=== PATIENT | female | born 1985 | race Caucasian/White ===

== ENCOUNTER 2019-04-07 07:27 | Day surgery (SDC) | payer OTHER ==
[2019-04-07] MEDS ORDERED: Sodium Chloride 0.9% 20 ML ONE (08:16)
[2019-04-07] MEDS ORDERED: Acetaminophen 500 MG TAB PO PRN (08:23)
[2019-04-07] MEDS ORDERED: diphenhydrAMINE 50 MG/ML VIAL IVP PRN (08:23)
[2019-04-07] MEDS ORDERED: SODIUM CHLORIDE 0.9% IVPB SCH ×2 (08:30)
[2019-04-07] MEDS ORDERED: RITUXIMAB IVPB SCH (08:30)
[2019-04-07] MEDS ORDERED: METHYLPREDNISOLONE SOD SUCC IVPB SCH (08:30)
[2019-04-07 08:42] VITALS: BP 98/57; TEMP 97.9
== END 2019-04-07 16:20 | disposition home or self-care (01) ==
LOC: ONC/OP 07:27
PROVIDERS: ATTEND Internal Medicine Rheumatology
DX: M31.30 Wegener's granulomatosis without renal involvement (principal)
CPT/HCPCS: 96375; 96413; 96415; J1200; J2930; J7050; J9312

== ENCOUNTER 2019-04-14 07:51 | Day surgery (SDC) | payer OTHER ==
[~2019-04-14 07:51] MED LIST: Acetaminophen 500 MG TAB PO PRN; METHYLPREDNISOLONE SOD SUCC IVPB SCH; RITUXIMAB IVPB SCH; SODIUM CHLORIDE 0.9% IVPB SCH; diphenhydrAMINE 25 MG CAP PO PRN; diphenhydrAMINE 50 MG/ML VIAL IVP PRN
[2019-04-14 08:55] VITALS: BP 113/56; TEMP 97.6
== END 2019-04-14 14:01 | disposition home or self-care (01) ==
LOC: ONC/OP 07:51
PROVIDERS: ATTEND Internal Medicine Rheumatology
DX: M31.30 Wegener's granulomatosis without renal involvement (principal)
CPT/HCPCS: 96375; 96413; 96415; J1200; J2930; J7050; J9312; Q0163

== ENCOUNTER 2019-04-22 08:08 | Day surgery (SDC) | payer OTHER ==
[2019-04-22 08:52] VITALS: BP 110/63; TEMP 97.9
[2019-04-22] MEDS ORDERED: Sodium Chloride 0.9% 20 ML ONE (09:08)
== END 2019-04-22 13:21 | disposition home or self-care (01) ==
LOC: ONC/OP 08:08
PROVIDERS: ATTEND Internal Medicine Rheumatology
DX: M31.30 Wegener's granulomatosis without renal involvement (principal)
CPT/HCPCS: 96375; 96413; 96415; J1200; J7050; J9312

== ENCOUNTER 2019-04-28 08:02 | Day surgery (SDC) | payer OTHER ==
[2019-04-28] MEDS ORDERED: Sodium Chloride 0.9% 20 ML ONE (08:12)
[2019-04-28 08:48] VITALS: BP 116/67; TEMP 97.8
== END 2019-04-28 12:55 | disposition home or self-care (01) ==
LOC: ONC/OP 08:02
PROVIDERS: ATTEND Internal Medicine Rheumatology
DX: M31.30 Wegener's granulomatosis without renal involvement (principal)
CPT/HCPCS: 96375; 96413; 96415; J1200; J1642; J2930; J7050; J9312

== ENCOUNTER 2019-12-15 08:26 | Day surgery (SDC) | payer OTHER ==
[~2019-12-15 08:26] MED LIST changes: -Acetaminophen 500 MG TAB PO PRN; -METHYLPREDNISOLONE SOD SUCC IVPB SCH; +RITUXAN IVPB SCH; -RITUXIMAB IVPB SCH; -diphenhydrAMINE 25 MG CAP PO PRN; -diphenhydrAMINE 50 MG/ML VIAL IVP PRN
[2019-12-15] MEDS ORDERED: Sodium Chloride 0.9% 20 ML ONE (08:30)
[2019-12-15 08:47] VITALS: TEMP 98.5
[2019-12-15] MEDS ORDERED: Acetaminophen 500 MG TAB PO PRN (09:33)
[2019-12-15] MEDS ORDERED: diphenhydrAMINE 50 MG/ML VIAL IVP PRN (09:33)
[2019-12-15] MEDS ORDERED: diphenhydrAMINE 25 MG CAP PO SCH (09:45)
[2019-12-15] MEDS ORDERED: Acetaminophen 500 MG TAB PO SCH (09:45)
[2019-12-15] MEDS ORDERED: methylPREDNISolone Sod Succ/PF 125 MG/2 ML VIAL IVP SCH (09:45)
[2019-12-15 13:18] VITALS: BP 102/51
== END 2019-12-15 13:18 | disposition home or self-care (01) ==
LOC: ONC/OP 08:26
PROVIDERS: ATTEND Internal Medicine Rheumatology
DX: I77.6 Arteritis, unspecified (principal)
CPT/HCPCS: 96375; 96413; 96415; J2930; J7050; J9312; Q0163

== ENCOUNTER 2019-12-22 08:18 | Day surgery (SDC) | payer OTHER ==
[~2019-12-22 08:18] MED LIST changes: +Acetaminophen 500 MG TAB PO PRN; +Acetaminophen 500 MG TAB PO SCH; +METHYLPREDNISOLONE SOD SUCC IVPB SCH; +diphenhydrAMINE 25 MG CAP PO PRN; +diphenhydrAMINE 25 MG CAP PO SCH; +diphenhydrAMINE 50 MG/ML VIAL IVP PRN; +methylPREDNISolone Sod Succ/PF 125 MG/2 ML VIAL IVP SCH
[2019-12-22] MEDS ORDERED: Sodium Chloride 0.9% 20 ML ONE (08:26)
[2019-12-22 09:04] VITALS: BP 102/68; TEMP 98
== END 2019-12-22 12:02 | disposition home or self-care (01) ==
LOC: ONC/OP 08:18
PROVIDERS: ATTEND Internal Medicine Rheumatology
DX: I77.6 Arteritis, unspecified (principal)
CPT/HCPCS: 96375; 96413; 96415; J2930; J7030; J9312; Q0163

== ENCOUNTER 2020-06-22 16:29 | Inpatient (IN) | payer OTHER ==
[~2020-06-22 16:29] MED LIST changes: -Acetaminophen 500 MG TAB PO PRN; -Acetaminophen 500 MG TAB PO SCH; +Heparin 1,000 UNITS/ML VIAL ONE; -METHYLPREDNISOLONE SOD SUCC IVPB SCH; -RITUXAN IVPB SCH; -SODIUM CHLORIDE 0.9% IVPB SCH; -diphenhydrAMINE 25 MG CAP PO PRN; -diphenhydrAMINE 25 MG CAP PO SCH; -diphenhydrAMINE 50 MG/ML VIAL IVP PRN; -methylPREDNISolone Sod Succ/PF 125 MG/2 ML VIAL IVP SCH
[2020-06-22 16:53] VITALS: BMI 26.6
[2020-06-22] MEDS ORDERED: Ondansetron ODT 4 MG TAB PO PRN (19:30)
[2020-06-22] MEDS ORDERED: Meropenem 500 MG in Sodium Chloride 0.9% 100 ML IVPB SCH (19:36)
[2020-06-22] MEDS ORDERED: VANCOMYCIN 1.25 GM/250 ML BAG IVPB SCH (19:38)
[2020-06-22] MEDS: Acetaminophen 325 MG TAB PO PRN (19:43)
[2020-06-22] MEDS ORDERED: Artificial Tear Sol 15 ML BOT EA EYE PRN (20:23)
[2020-06-22] MEDS: Famotidine/PF 20 mg/2ml Vial SLOW IVP SCH (20:35)
[2020-06-22] MEDS: Folic Acid 1 MG TAB PO SCH (20:36)
[2020-06-22] MEDS: Montelukast Sodium 10 mg Tablet PO SCH (20:36)
--- NOTE | 2020-06-22 20:36 | PDOC.HHP ---
Hospitalist HPI History of Present Illness: ADMISSION DATE: 06/22/2020 TIME OF ASSESSMENT: 1800 PRIMARY CARE PHYSICIAN: None CHIEF COMPLAINT: Fever and productive cough HPI: This is a 35-year-old woman with a history of Hang's disease who has been transferred from [facility] due to sepsis pneumonia with a lung abscess. 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 She states she developed chills and continued to feel generally unwell the following 2 days. She was tested for Covid and it came back negative. She developed a cough and discomfort to the right shoulder blade region prompting her to seek medical attention. A chest x- ray done 06/15/2020 showed evidence for right upper lobe pneumonia. The patient received a dose of Rocephin and was sent home on Augmentin. After 2 days she presented to the emergency department due to persistently high temperatures at home spite the antibiotics. A repeat chest x-ray done on 06/17/2020 demonstrated right upper lobe pneumonia that appeared mildly or moderately worse compared to the initial chest x-ray. She was admitted to [facility] and continued on Rocephin as well as azithromycin. Dr. Gale of [place] was consulted and her antibiotics were switched to cefepime, vancomycin and Levaquin. She had a CT of the chest done which demonstrated findings suggestive for right upper lobe pneumonia and a marylin mitten pulmonary abscess predominantly affecting the right upper lobe. There is a large sense of consolidation within the right upper lobe consistent with a large area of infectious pneumonitis. In the medial aspect of the process was the intraparenchymal pulmonary abscess. Reticulonodular densities within the superior segment of the right lower lobe were seen as well. Follow-up imaging was advised after treatment completed to confirm resolution and exclude any underlying mass lesion. Due to persistent leukocytosis and persistent fevers it was decided to transfer the patient here for pulmonary evaluation. Carious testing ordered by Dr. Gale which is pending as well as AFB. She had blood cultures done at the time of admission which were negative. Acc ording to the patient she has been slightly tachycardic throughout her hospital stay and her blood pressure has been in the low 100s which she states is typical for her. Her sats have maintained above 95% on room air without the need for oxygen supplementation. She continues to have a cough that is productive for purulent sputum but denies any hemoptysis or chest pain. Denies having any shortness of breath and states that DuoNeb's have been helping significantly. She prefers to avoid cough suppressants in order to continue to cough up sputum. She received 1 dose of Lovenox prior to transfer and states it was very painful. She wishes to try mechanical SCDs for now and hold off on antico agulation. Her appetite is low and she reports decreased food intake but has maintained adequate hydration. Denies any abdominal pain but has been experiencing some loose stools associated with antibiotics. Denies any profuse watery diarrhea. All other review systems are negative. Allergies/Adverse Reactions: Allergy/AdvReac Type Severity Reaction Status Date / Time hydrocodone [From [place]] AdvReac Intermediate Verified 06/17/20 18:08 NSAIDS (Non-Steroidal AdvReac Verified 06/17/20 18:08 Anti-Inflamma Home Medications: Medication Instructions Recorded Confirmed Type Fluticasone Propionate [Flonase 1 spray EA NARE DAILY 06/17/20 06/22/20 History Allergy Relief] Folic Acid 1 mg PO HS 06/17/20 06/22/20 History Methotrexate Sodium 15 mg PO Q7D 06/17/20 06/22/20 History Montelukast Sodium [Singulair] 10 mg PO HS 06/17/20 06/22/20 History Restasis [Restasis Ophth Drops] 2 drop EA EYE BID 06/17/20 06/22/20 History Rituxan 1,000 mg IVPB Q168D 06/17/20 06/22/20 History Ipratropium/Albuterol Sulfate 3 ml NEB [id number] neb 06/22/20 06/22/20 Rx [DuoNeb] Past History: PAST MEDICAL HISTORY: 1. Hang's disease, on Rituxan and methotrexate. Last dose of Rituxan was 6 months ago. Follows with a [employer] in [place]. 2. Asthma PAST SURGICAL HISTORY: 1. SOCIAL HISTORY: Denies any tobacco use, alcohol consumption or drug use. FAMILY HISTORY: Noncontributory Hospitalist Exam Vitals: Vital Signs (12 hours) Temp Pulse Resp BP Pulse Ox 06/22/20 17:00 98 06/22/20 16:52 100.2 F H 106 H 18 103/69 98 Weight Weight 165 lb General Appearance: NAD, awake alert Eye: PERRL, anicteric sclera ENT: normocephalic atraumatic, moist mucosa Neck: supple, no lymphadenopathy Heart: RRR, no murmur, normal peripheral pulses Respiratory: CTAB, no wheezes, no rales, no ronchi, normal chest expansion Gastrointestinal: soft, non-tender, non-distended, normal bowel sounds Extremities: no cyanosis, no clubbing, no edema Skin: normal turgor, no lesions, no rashes Neurological: cranial nerve grossly intact, normal sensation to touch, no weakness Musculoskeletal: normal tone, normal strength, no muscle wasting Psychiatric: normal affect, normal behavior, A&O x 3 Hospitalist Results Result Diagrams: 06/22/20 20:08 CT scan - chest Status: report reviewed by nm Hospitalist H&P A/P (1) Abscess of lung with pneumonia Code(s): J85.1 - ABSCESS OF LUNG WITH PNEUMONIA Status: Acute (2) Diarrhea Code(s): R19.7 - DIARRHEA, UNSPECIFIED Status: Acute (3) Hypokalemia Code(s): E87.6 - HYPOKALEMIA Status: Acute (4) Hang's disease, pulmonary Code(s): 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 Gale Consults placed for Dr. Gale and Dr. Trejo DVT prophylaxis with Mechanical SCDs, per patient request Lovenox on hold GI Prophylaxis with mechanical SCDs CODE STATUS FULL Case discussed with attending.
[2020-06-22 20:37] LABS: Hemoglobin 10.5 g/dL (12.0-16.0); Mean Corpuscular HGB CONC 33.7 g/dL (32.0-36.0); Mean Corpuscular Volume 89.1 fL (78.0-98.0); Mean Platelet Volume 6.9 fL (7.4-10.4); Platelet Count 799 thou/uL (130-400); RBC Distribution Width 12.8 % (11.5-14.5); Red Blood Cell (RBC) Count 3.49 mill/uL (4.20-5.40); White Blood Cell (WBC) Count 23.2 thou/uL (4.8-10.8)
[2020-06-22] MEDS: Sodium Chloride 0.9% 1,000 ML IV SCH (20:38)
[2020-06-22 20:49] LABS: Lactic Acid 2.3 mmol/L (0.5-2.2)
[2020-06-22 20:53] LABS: Anion Gap 17 mmol/L (10-20); BUN (Urea Nitrogen) 8 mg/dL (7.0-18.7); Calc. Creatinine Clearance 131 mL/min (70-130); Calcium 8.4 mg/dL (7.8-10.44); Carbon Dioxide 20 mmol/L (22-29); Chloride 102 mmol/L (98-107); Glucose 120 mg/dL (70-105); Magnesium 2.1 mg/dL (1.6-2.6); Potassium 3.5 mmol/L (3.5-5.1); Sodium 135 mmol/L (136-145)
[2020-06-22 20:59] LABS: Band 29 % (5-11); Eosinophils 1 % (0-10); Lymphocytes 9 % (21-51); MDiff Complete? YES; Monocytes 5 % (0-10); Neutrophil 56 % (42-75); Platelet Morphology Comment Appears Increased
[2020-06-22] MEDS ORDERED: Potassium Chloride 20 MEQ TAB PO SCH (21:00)
[2020-06-22] MEDS ORDERED: Vancomycin 1 GM in Premix Bag 1 BAG IVPB SCH (21:00)
[2020-06-22] MEDS ORDERED: Cefepime 2 GM in Sodium Chloride 0.9% 100 ML IVPB SCH (21:00)
[2020-06-22] MEDS: VANCOMYCIN 1.25 GM/250 ML BAG 1.25 GM in Premix Bag 1 BAG IVPB SCH (22:19)
[2020-06-23] MEDS: Meropenem 500 MG in Sodium Chloride 0.9% 100 ML IVPB SCH ×4 (00:29→20:41)
[2020-06-23 02:50] LABS: SARS-CoV-2 PCR by NAA Not Detected (NotDetected)
[2020-06-23 06:11] LABS: Anion Gap 15 mmol/L (10-20); BUN (Urea Nitrogen) 7 mg/dL (7.0-18.7); Calc. Creatinine Clearance 153 mL/min (70-130); Calcium 8.3 mg/dL (7.8-10.44); Carbon Dioxide 23 mmol/L (22-29); Chloride 103 mmol/L (98-107); Glucose 101 mg/dL (70-105); Potassium 4.1 mmol/L (3.5-5.1); Sodium 137 mmol/L (136-145)
[2020-06-23] MEDS: VANCOMYCIN 1.25 GM/250 ML BAG 1.25 GM in Premix Bag 1 BAG IVPB SCH ×3 (06:20→22:19)
[2020-06-23] MEDS: Sodium Chloride 0.9% 1,000 ML IV SCH ×2 (06:21→14:20)
[2020-06-23 06:40] LABS: Band 4 % (5-11); Eosinophils 2 % (0-10); Lymphocytes 9 % (21-51); MDiff Complete? YES; Mean Corpuscular HGB CONC 32.7 g/dL (32.0-36.0); Mean Corpuscular Hemoglobin 29.2 pg (27.0-31.0); Mean Corpuscular Volume 89.3 fL (78.0-98.0); Monocytes 10 % (0-10); Neutrophil 75 % (42-75); Platelet Count 817 thou/uL (130-400); Platelet Morphology Comment Appears Increased; Red Blood Cell (RBC) Count 3.79 mill/uL (4.20-5.40); White Blood Cell (WBC) Count 25.3 thou/uL (4.8-10.8)
[2020-06-23] MEDS: Saccharomyces boulardii 250 MG CAP PO SCH (08:38)
[2020-06-23] MEDS: Famotidine/PF 20 mg/2ml Vial SLOW IVP SCH ×2 (08:39→20:41)
[2020-06-23] MEDS ORDERED: FLU VACC QS2020-21(6MOS UP)/PF 60 MCG/0.5 ML SYRINGE IM ONE (09:00)
[2020-06-23] MEDS: Fluticasone Propionate Nasal Spray 16 gm Bottle NASAL SCH (11:25)
[2020-06-23] MEDS: Acetaminophen 325 MG TAB PO PRN (11:28)
--- NOTE | 2020-06-23 13:34 | CON ---
DATE OF CONSULTATION: 06/23/2020 HISTORY OF PRESENT ILLNESS: Ms. Gorman is a 35-year-old female. She was diagnosed several years back when she was having Hang's. She did have a positive ANCA. She apparently had pulmonary and renal involvement based on her history. She was transferred from [facility] over here because of this. PAST MEDICAL HISTORY: Otherwise remarkable only for asthma. She takes Rituxan and methotrexate for her Hang's. 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 SOCIAL HISTORY: She is nonsmoker, nondrinker, and nondrug user. FAMILY HISTORY: Negative for lung disease in early age. REVIEW OF SYSTEMS: Otherwise negative. Her presenting complaint was pleurisy, apparently which is initially treated outpatient with Augmentin and then she is subsequently admitted. PHYSICAL EXAMINATION: GENERAL: She is afebrile and temperature maximum here 100.2, heart rate is 105, respiratory rate is 16, oximetry is 96 on room air. HEENT: Pupils are equal. Sclerae are anicteric. NECK: Supple. LUNGS: She has diffuse wheezes on chest exam, they are mild. HEART: Regular rhythm. S1 and S2 are normal. ABDOMEN: Soft and nontender. EXTREMITIES: Without clubbing, cyanosis, or edema. LABORATORY DATA: Her ANCA and myeloperoxidase antibodies are negative. IMPRESSION: 1. Underlying Hang's, which appears to be quiescent. 2. Necrotizing pneumonia involving posterior segment in right upper lobe. This is most likely mixed kandi. Once she has 24 hours of being afebrile, she could be switched to enteral antimicrobial therapy. She probably would benefit from low- dose steroids given her ongoing bronchospasm that is mild. We will follow. This is a 70 min consult with greater than 50% of the time spent on the unit with coordination of care. Job ID: [id number] [facility]
--- NOTE | 2020-06-23 13:35 | PRG ---
DATE OF SERVICE: 06/23/2020 SUBJECTIVE: Ms. Gorman has been transferred to the hospital from [place] to have Pulmonary evaluate the patient. She is actually doing a little better and is coughing less, less sputum production, a little bit of loose stool. No abdominal pain. No chest pain. OBJECTIVE: VITAL SIGNS: T-max was 100.2 yesterday, now she has been max 99 since she was transferred; blood pressure 96/60; heart rate 113; breathing 20 times a minute; 96% room air saturation. LUNGS: With a little bit of change in the breath sounds in the right upper lobe, but other than that, no wheezing or crackles. HEART: S1 and S2. Regular rate. No S3 or S4. ABDOMEN: Soft, not distended or tender. BACK: No back tenderness. NEUROLOGIC: Nonfocal. LABORATORY DATA: White cell count is up to 25,000, hemoglobin 11, platelets 817, 75% neutrophils, bands are down to 4%, which is a good sign. Creatinine 0.6. Repeat SARS-CoV-2 not detected. Karius test shows no organism below or above the threshold of statistical significance. I am going to contact the laboratory and see if there is any organism below the threshold that might be significant in this scenario. The Hang serologies were negative. TB QuantiFERON test was negative. The Fungitell assay was less than 31 and immunoglobulin quantitation was normal. ASSESSMENT AND DISCUSSION: History of Hang's, on Rituxan and methotrexate with acute community-acquired pneumonia with abscess, likely anaerobic component plus-minus gram-negative brad or methicillin-resistant Staphylococcus aureus. Methicillin-resistant Staphylococcus aureus and gram-negative brad component are less likely since one would expect a positive Karius test. Fungal mycobacterial less likely. Continue current regimen and see if she will start to improve this. If she continues to improve, then we will place a PICC line and discharge on IV antimicrobial therapy for protracted period of time. P.S.: I contacted [employer] consulting service and requested that they look at the raw data and the list of pathogens that were detected below their threshold of significance, and Mycoplasma pneumonia was identified. Since the sample was submitted quite a few days after initiation of antimicrobial tx, it is conceivable that Mycoplasma pneumoniae might the the etiology here since it has been described in association with lung abscess. The atypical presentation would be potentially explained by the immunosuppression. Job ID: [id number] [facility]
--- NOTE | 2020-06-23 15:08 | PDOC.HOSPP ---
- Subjective Encounter Date: 06/23/20 Subjective: Patient's record reviewed. Patient reports he is generally feeling okay. Eager to ambulate a bit if she can. - Objective Vital Signs & Weight: Vital Signs (12 hours) Temp Pulse Resp BP BP Pulse Ox 06/23/20 13:40 101 H 16 95 06/23/20 11:31 98.3 F 113 H 20 96/60 96 06/23/20 08:43 96 06/23/20 07:51 99.4 F 124 H 22 H 118/88 96 06/23/20 06:07 105 H 16 96 06/23/20 05:20 98.6 F 117 H 18 111/77 97 Weight Weight 165 lb Result Diagrams: 06/23/20 05:26 06/23/20 05:26 Hospitalist ROS - Medication Medications: Active Medications Generic Name Dose Route Start Last Admin Trade Name Freq PRN Reason Stop Dose Admin Acetaminophen 650 mg 06/22/20 19:30 06/23/20 11:28 Acetaminophen 325 Mg Tab PO 650 mg Q4H PRN Administration Headache/Fever/Mild Pain (1-3) Albuterol/Ipratropium 3 ml 06/23/20 01:00 06/23/20 13:40 Ipratropium/Albuterol Sulfate 3 Ml Neb NEB 3 ml [id number] MORGAN Administration Famotidine 20 mg 06/22/20 21:00 06/23/20 08:39 Famotidine/Pf 20 Mg/2ml Vial SLOW IVP 20 mg Q12HR MORGAN Administration Fluticasone Propionate 0 gm 06/23/20 09:00 06/23/20 11:25 Fluticasone Propionate Nasal [place] 16 Gm Bottle NASAL 1 spr DAILY MORGAN Administration Folic Acid 1 mg 06/22/20 21:00 06/22/20 20:36 Folic Acid 1 Mg Tab PO 1 mg HS MORGAN Administration Meropenem 500 mg/ Sodium 100 mls @ 200 mls/hr 06/22/20 23:59 06/23/20 11:25 Chloride IVPB 100 mls Q6HR MORGAN Administration Levofloxacin 750 mg/ Device 150 mls @ 100 mls/hr 06/22/20 20:30 06/22/20 20:35 IVPB 150 mls Q24HR MORGAN Administration Sodium Chloride 1,000 mls @ 100 mls/hr 06/22/20 20:15 06/23/20 14:20 Normal Saline 0.9% IV 1,000 mls .Q10H MORGAN Administration Vancomycin HCl 1.25 gm/ Device 250 mls @ 166.667 mls/hr 06/22/20 22:00 06/23/20 14:15 IVPB 250 mls Q8HR MORGAN Administration Montelukast Sodium 10 mg 06/22/20 21:00 06/22/20 20:36 Montelukast Sodium 10 Mg Tablet PO 10 mg HS MORGAN Administration Saccharomyces Boulardii 250 mg 06/23/20 09:00 06/23/20 08:38 Saccharomyces Boulardii 250 Mg Cap PO 250 mg DAILY MORGAN Administration Sodium Chloride 10 ml 06/22/20 21:00 06/23/20 08:38 Flush - Normal Saline 10 Ml Syringe IVF Not Given Q12HR MORGAN Hospitalist Exam Vitals: Vital Signs (12 hours) Temp Pulse Resp BP BP Pulse Ox 06/23/20 13:40 101 H 16 95 06/23/20 11:31 98.3 F 113 H 20 96/60 96 06/23/20 08:43 96 06/23/20 07:51 99.4 F 124 H 22 H 118/88 96 06/23/20 06:07 105 H 16 96 06/23/20 05:20 98.6 F 117 H 18 111/77 97 Weight Weight 165 lb General Appearance: NAD, awake alert Heart: RRR, no murmur, no gallops, no rubs, normal peripheral pulses Respiratory - other findings: Right upper lobe rales. Slight wheeze. Gastrointestinal: soft, non-tender, non-distended, normal bowel sounds, no palpa ble masses, no hepatomegaly, no splenomegaly, no bruit Extremities: no cyanosis, no clubbing, no edema Skin: normal turgor Neurological: cranial nerve grossly intact, normal sensation to touch, no weakness, no focal deficits, no new deficit Musculoskeletal: normal tone, normal strength, no muscle wasting Psychiatric: normal affect, normal behavior, A&O x 3 Hosp A/P (1) Necrotizing pneumonia Code(s): J85.0 - GANGRENE AND NECROSIS OF LUNG Status: Acute (2) Diarrhea Code(s): R19.7 - DIARRHEA, UNSPECIFIED Status: Acute (3) Hypokalemia Code(s): E87.6 - HYPOKALEMIA Status: Acute (4) Hang's disease, pulmonary Code(s): M31.30 - HANG'S GRANULOMATOSIS WITHOUT RENAL INVOLVEMENT Status: Chronic (5) Sepsis Code(s): A41.9 - SEPSIS, UNSPECIFIED ORGANISM Status: Resolved - Plan Necrotizing pneumonia with resolved sepsis: Based on patient's imaging she has significant right upper lobe infiltrate with area of abscess or necrotic tissue. Patient transferred for pulmonary input. Appreciate Dr. Trejo's consult. Case was discussed with Dr. Trejo. ID consult also appreciated. Patient remains on broad-spectrum antibiotics. Karius test pending to help isolate the potential source of infection. Possibly polymicrobial. History of Hang's granulomatosis: Appears quiescent. Pulmonary recommended low-dose steroids. New Hypokalemia: Improved. Continue to monitor Diarrhea: Appears to be stabilized. Continue to monitor.
[2020-06-23] MEDS: Montelukast Sodium 10 mg Tablet PO SCH (20:41)
[2020-06-23] MEDS: Folic Acid 1 MG TAB PO SCH (20:41)
[2020-06-23 21:55] LABS: Vancomycin, Trough 13.9 ug/mL
[2020-06-24] MEDS: Sodium Chloride 0.9% 1,000 ML IV SCH ×2 (02:21→12:30)
[2020-06-24] MEDS: VANCOMYCIN 1.25 GM/250 ML BAG 1.25 GM in Premix Bag 1 BAG IVPB SCH (05:48)
[2020-06-24] MEDS: Meropenem 500 MG in Sodium Chloride 0.9% 100 ML IVPB SCH ×5 (05:48→23:41)
[2020-06-24 08:10] LABS: #Basophils 0.1 thou/uL (0.0-0.2); #Eosinphils 0.2 thou/uL (0.0-0.7); #Lymphocytes 2.3 thou/uL (1.20-3.40); #Monocytes 1.8 thou/uL (0.11-0.59); #Neutrophils 20.8 thou/uL (1.40-6.50); %Basophils 0.3 % (0.0-1.0); %Eosinophils 0.9 % (0.0-10.0); %Lymphocytes 9.2 % (21.0-51.0); %Neutrophils 82.5 % (42.0-75.0); Hemoglobin 10.4 g/dL (12.0-16.0); Mean Corpuscular HGB CONC 34.5 g/dL (32.0-36.0); Mean Corpuscular Hemoglobin 31.3 pg (27.0-31.0); Mean Corpuscular Volume 90.7 fL (78.0-98.0); Mean Platelet Volume 6.9 fL (7.4-10.4); Platelet Count 782 thou/uL (130-400); Red Blood Cell (RBC) Count 3.32 mill/uL (4.20-5.40); White Blood Cell (WBC) Count 25.2 thou/uL (4.8-10.8)
[2020-06-24] MEDS: methylPREDNISolone Sod Succ 40 MG VIAL IVP SCH (08:21)
[2020-06-24] MEDS: Saccharomyces boulardii 250 MG CAP PO SCH (08:21)
[2020-06-24] MEDS: Famotidine/PF 20 mg/2ml Vial SLOW IVP SCH ×2 (08:21→20:50)
[2020-06-24] MEDS: Fluticasone Propionate Nasal Spray 16 gm Bottle NASAL SCH (08:22)
[2020-06-24 08:33] LABS: ALT (SGPT) 294 U/L (8-55); AST (SGOT) 152 U/L (5-34); Albumin 3.1 g/dL (3.5-5.0); Alkaline Phosphatase 331 U/L (40-110); Anion Gap 15 mmol/L (10-20); BUN (Urea Nitrogen) 7 mg/dL (7.0-18.7); Bilirubin, Total 0.7 mg/dL (0.2-1.2); Calc. Creatinine Clearance 135 mL/min (70-130); Carbon Dioxide 23 mmol/L (22-29); Chloride 101 mmol/L (98-107); Globulin 2.9 g/dL (2.4-3.5); Glucose 106 mg/dL (70-105); Potassium 4.2 mmol/L (3.5-5.1); Sodium 135 mmol/L (136-145)
--- NOTE | 2020-06-24 13:19 | PDOC.HOSPP ---
- Subjective Encounter Date: 06/24/20 (f/u necrotizing pneumonia) Encounter Time: 13:18 Subjective: Pt today reports she is feeling about the same. She denies any significant shortness of breath. She denies n/v, having loose stools but not abd pain or diarrhea. She denies any new sx. Decreased PO intake secondary to food not tasting right. - Objective Vital Signs & Weight: Vital Signs (12 hours) Temp Pulse Resp BP Pulse Ox 06/24/20 08:00 98 06/24/20 07:06 102 H 16 98 06/24/20 07:00 98.9 F 115 H 20 97/65 95 Weight Weight 165 lb I&O: 06/23/20 06/24/20 06/25/20 06:59 06:59 06:59 Intake Total 1900 Balance 1900 Result Diagrams: 06/24/20 07:33 06/24/20 07:34 Hospitalist ROS - Medication Medications: Active Medications Generic Name Dose Route Start Last Admin Trade Name Freq PRN Reason Stop Dose Admin Acetaminophen 650 mg 06/22/20 19:30 06/23/20 11:28 Acetaminophen 325 Mg Tab PO 650 mg Q4H PRN Administration Headache/Fever/Mild Pain (1-3) Albuterol/Ipratropium 3 ml 06/23/20 01:00 06/24/20 07:06 Ipratropium/Albuterol Sulfate 3 Ml Neb NEB 3 ml [id number] MORGAN Administration Famotidine 20 mg 06/22/20 21:00 06/24/20 08:21 Famotidine/Pf 20 Mg/2ml Vial SLOW IVP 20 mg Q12HR MORGAN Administration Fluticasone Propionate 0 gm 06/23/20 09:00 06/24/20 08:22 Fluticasone Propionate Nasal [place] 16 Gm Bottle NASAL 1 spr DAILY MORGAN Administration Folic Acid 1 mg 06/22/20 21:00 06/23/20 20:41 Folic Acid 1 Mg Tab PO 1 mg HS MORGAN Administration Meropenem 500 mg/ Sodium 100 mls @ 200 mls/hr 06/22/20 23:59 06/24/20 12:30 Chloride IVPB 100 mls Q6HR MORGAN Administration Levofloxacin 750 mg/ Device 150 mls @ 100 mls/hr 06/22/20 20:30 06/23/20 21:30 IVPB 150 mls Q24HR MORGAN Administration Vancomycin HCl 1.25 gm/ Device 250 mls @ 166.667 mls/hr 06/22/20 22:00 06/24/20 05:48 IVPB 250 mls Q8HR MORGAN Administration Methylprednisolone Sodium Succinate 40 mg 06/24/20 09:00 06/24/20 08:21 Methylprednisolone Sod Succ 40 Mg Vial IVP 40 mg DAILY MORGAN Administration Montelukast Sodium 10 mg 06/22/20 21:00 06/23/20 20:41 Montelukast Sodium 10 Mg Tablet PO 10 mg HS MORGAN Administration Saccharomyces Boulardii 250 mg 06/23/20 09:00 06/24/20 08:21 Saccharomyces Boulardii 250 Mg Cap PO 250 mg DAILY MORGAN Administration Sodium Chloride 10 ml 06/22/20 21:00 06/24/20 08:23 Flush - Normal Saline 10 Ml Syringe IVF Not Given Q12HR MORGAN Hospitalist Exam Vitals: Vital Signs (12 hours) Temp Pulse Resp BP Pulse Ox 06/24/20 08:00 98 06/24/20 07:06 102 H 16 98 06/24/20 07:00 98.9 F 115 H 20 97/65 95 Weight Weight 165 lb General Appearance: NAD Heart: RRR, no murmur Respiratory: no wheezes, no rales, no ronchi Respiratory - other findings: slightly decreased breath sounds right upper chest Gastrointestinal: soft, non-tender, non-distended, normal bowel sounds Extremities: no cyanosis, no clubbing, no edema Psychiatric: normal affect Hosp A/P (1) Necrotizing pneumonia Code(s): J85.0 - GANGRENE AND NECROSIS OF LUNG Status: Acute (2) Elevated liver function tests Code(s): R79.89 - OTHER SPECIFIED ABNORMAL FINDINGS OF BLOOD CHEMISTRY Status: Acute (3) Hang's disease, 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 Patient transferred for pulmonary input. Appreciate Dr. Trejo's consult. ID consult also appreciated plan for PICC line and IV antibiotics Karius test pending to help isolate the potential source of infection. History of Hang's granulomatosis Appears quiescent. Pulmonary recommended low-dose steroids - started 2/6 Hypokalemia Resolved Elevated LFT's Last check was May and normal. Uncertain if related to infection, meds, and/or another process. Will trend and order RUQ ultrasound Diarrhea Resolved dvt prophy - ambulatory gi prophy - on IV famotidine as pt was having GI sx code status full reviewed plan of care with patient/her Mom, no questions or further needs at end of eval.
--- NOTE | 2020-06-24 14:30 | ULT ---
RIGHT UPPER QUADRANT ULTRASOUND CLINICAL HISTORY: Elevated LFTs.. COMPARISON: None FINDINGS: Liver:Normal echotexture without focal mass. Intrahepatic bile ducts: No intrahepatic or extrahepatic biliary dilation.; Common bile duct: 1.9 mm. Gallbladder: There is layered gallbladder sludge within the gallbladder. There are small stones withi n the gallbladder fundus. No gallbladder wall thickening is evident. Adrian's sign:None Main portal vein:Patent with hepatopedal flow. Pancreas:Visualized pancreas appears normal. Right kidney: Right kidney measures 11.8 x 5.0 x 4.5 cm. No focal renal lesion or hydronephrosis. Additional findings: None. IMPRESSION: Cholelithiasis with gallbladder sludge. No definite sonographic evidence of acute cholecystitis.
[2020-06-24] MEDS: Montelukast Sodium 10 mg Tablet PO SCH (20:50)
[2020-06-24] MEDS: Folic Acid 1 MG TAB PO SCH (20:50)
[2020-06-25] MEDS: VANCOMYCIN 1.25 GM/250 ML BAG 1.25 GM in Premix Bag 1 BAG IVPB SCH ×3 (00:21→13:51)
[2020-06-25] MEDS: Meropenem 500 MG in Sodium Chloride 0.9% 100 ML IVPB SCH ×3 (05:39→17:08)
[2020-06-25 07:01] LABS: Hemoglobin 9.9 g/dL (12.0-16.0); Mean Corpuscular HGB CONC 32.1 g/dL (32.0-36.0); Mean Corpuscular Hemoglobin 28.8 pg (27.0-31.0); Mean Corpuscular Volume 89.9 fL (78.0-98.0); Mean Platelet Volume 7.1 fL (7.4-10.4); Platelet Count 937 thou/uL (130-400); RBC Distribution Width 12.9 % (11.5-14.5); Red Blood Cell (RBC) Count 3.44 mill/uL (4.20-5.40)
[2020-06-25 07:13] LABS: Anion Gap 16 mmol/L (10-20); BUN (Urea Nitrogen) 12 mg/dL (7.0-18.7); Calc. Creatinine Clearance 161 mL/min (70-130); Calcium 8.7 mg/dL (7.8-10.44); Carbon Dioxide 24 mmol/L (22-29); Chloride 103 mmol/L (98-107); Glucose 114 mg/dL (70-105); Potassium 3.9 mmol/L (3.5-5.1); Sodium 139 mmol/L (136-145)
[2020-06-25 07:16] LABS: ALT (SGPT) 297 U/L (8-55); AST (SGOT) 181 U/L (5-34); Alkaline Phosphatase 302 U/L (40-110); Bilirubin, Direct 0.2 mg/dL (0.1-0.3); Bilirubin, Total 0.4 mg/dL (0.2-1.2); Protein, Total 5.8 g/dL (6.0-8.3)
[2020-06-25 08:31] LABS: Band 6 % (5-11); Hypersemented Neutrophil SLIGHT; Large Platelets SLIGHT; Lymphocytes 4 % (21-51); MDiff Complete? YES; Monocytes 6 % (0-10); Neutrophil 84 % (42-75); Platelet Morphology Comment Appears Increased
[2020-06-25] MEDS: methylPREDNISolone Sod Succ 40 MG VIAL IVP SCH (08:38)
[2020-06-25] MEDS: Saccharomyces boulardii 250 MG CAP PO SCH (08:38)
[2020-06-25] MEDS: Famotidine/PF 20 mg/2ml Vial SLOW IVP SCH (08:38)
[2020-06-25] MEDS: Fluticasone Propionate Nasal Spray 16 gm Bottle NASAL SCH (08:39)
--- NOTE | 2020-06-25 12:52 | PDOC.HOSPP ---
- Subjective Encounter Date: 06/25/20 (f/u necrotizing pneumonia) Encounter Time: 12:49 Subjective: Pt reports feeling better - notices her heart rate is lower, she has been walking in the hallway. She has not noticed any further fever. She denies any diarrhea/n/v/abd pain. She reports food is tasting better. - Objective Vital Signs & Weight: Vital Signs (12 hours) Temp Pulse Resp BP BP Pulse Ox 06/25/20 09:41 74 18 101/69 97 06/25/20 08:38 97 06/25/20 08:00 97.4 F L 68 18 98/61 93 L 06/25/20 06:54 102 H 14 98 06/25/20 05:32 97.6 F 73 20 99/71 97 06/25/20 01:18 97.4 F L 78 20 104/70 98 Weight Admit Weight 165 lb Weight 165 lb I&O: 06/24/20 06/25/20 06/26/20 06:59 06:59 06:59 Intake Total 1900 1330 Balance 1900 1330 Result Diagrams: 06/25/20 06:13 06/25/20 06:13 Hospitalist ROS - Medication Medications: Active Medications Generic Name Dose Route Start Last Admin Trade Name Freq PRN Reason Stop Dose Admin Acetaminophen 650 mg 06/22/20 19:30 06/23/20 11:28 Acetaminophen 325 Mg Tab PO 650 mg Q4H PRN Administration Headache/Fever/Mild Pain (1-3) Albuterol/Ipratropium 3 ml 06/23/20 01:00 06/25/20 12:38 Ipratropium/Albuterol Sulfate 3 Ml Neb NEB 3 ml [id number] MORGAN Administration Fluticasone Propionate 0 gm 06/23/20 09:00 06/25/20 08:39 Fluticasone Propionate Nasal [place] 16 Gm Bottle NASAL 1 spr DAILY MORGAN Administration Folic Acid 1 mg 06/22/20 21:00 06/24/20 20:50 Folic Acid 1 Mg Tab PO 1 mg HS MORGAN Administration Meropenem 500 mg/ Sodium 100 mls @ 200 mls/hr 06/22/20 23:59 06/25/20 11:44 Chloride IVPB 100 mls Q6HR MORGAN Administration Levofloxacin 750 mg/ Device 150 mls @ 100 mls/hr 06/22/20 20:30 02/06/21 20:56 IVPB 150 mls Q24HR MORGAN Administration Vancomycin HCl 1.25 gm/ Device 250 mls @ 166.667 mls/hr 06/24/20 22:00 06/25/20 06:32 IVPB 250 mls Q8HR MORGAN Administration Methylprednisolone Sodium Succinate 40 mg 06/24/20 09:00 06/25/20 08:38 Methylprednisolone Sod Succ 40 Mg Vial IVP 40 mg DAILY MORGAN Administration Montelukast Sodium 10 mg 06/22/20 21:00 06/24/20 20:50 Montelukast Sodium 10 Mg Tablet PO 10 mg HS MORGAN Administration Saccharomyces Boulardii 250 mg 06/23/20 09:00 06/25/20 08:38 Saccharomyces Boulardii 250 Mg Cap PO 250 mg DAILY MORGAN Administration Sodium Chloride 10 ml 06/22/20 21:00 06/25/20 08:38 Flush - Normal Saline 10 Ml Syringe IVF 10 ml Q12HR MORGAN Administration Hospitalist Exam Vitals: Vital Signs (12 hours) Temp Pulse Resp BP BP Pulse Ox 06/25/20 09:41 74 18 101/69 97 06/25/20 08:38 97 06/25/20 08:00 97.4 F L 68 18 98/61 93 L 06/25/20 06:54 102 H 14 98 06/25/20 05:32 97.6 F 73 20 99/71 97 06/25/20 01:18 97.4 F L 78 20 104/70 98 Weight Admit Weight 165 lb Weight 165 lb General Appearance: NAD Heart: RRR, no murmur Respiratory: no wheezes, no rales, no ronchi Respiratory - other findings: slightly decreased breath sounds right upper chest Gastrointestinal: soft, non-tender, non-distended, normal bowel sounds Extremities: no cyanosis, no clubbing, no edema Psychiatric: normal affect Hosp A/P (1) Necrotizing pneumonia Code(s): J85.0 - GANGRENE AND NECROSIS OF LUNG Status: Acute (2) Elevated liver function tests Code(s): R79.89 - OTHER SPECIFIED ABNORMAL FINDINGS OF BLOOD CHEMISTRY Status: Acute (3) Hang's disease, 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 Patient transferred from [facility] for pulmonary input - Appreciate Dr. Trejo's consult. ID consult also appreciated plan for PICC line and IV antibiotics - request for PICC line placed, anticipate it will be tomorrow (Friday) WBC slightly improved today even with steroids started yesterday. History of Hang's granulomatosis Appears quiescent. Pulmonary recommended low-dose steroids - started 2/6 Hypokalemia Resolved Elevated LFT's - stable from yesterday Last check was May and normal. RUQ ultrasound shows gallstones/sludge - asx Continue monitoring - likely multi-factorial with illness and antibiotics Diarrhea Resolved Thrombocytosis - likely reactive, monitor dvt prophy - ambulatory gi prophy - on famotidine - change to PO while on steroids code status full reviewed plan of care with patient/family, no questions or further needs at end of eval.
--- NOTE | 2020-06-25 13:39 | PRG ---
DATE OF SERVICE: 06/25/2020 SUBJECTIVE: Ingris Gorman is afebrile. She says she is feeling better. She has been walking in the halls. OBJECTIVE: LUNGS: Clear. HEART: Regular rhythm. ABDOMEN: Soft. EXTREMITIES: Without asymmetry. LABORATORY DATA: White count is 23, hemoglobin 9.9, platelets are up to 937. She has 84% segs, 6% bands. Electrolytes are unremarkable. IMPRESSION: 1. Pneumonia with a reactive thrombocytosis. 2. 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 She is scheduled to go home with IV/PICC line antimicrobial therapy. I have recommended that she follow up with me in 6 to 8 weeks for a followup chest x-ray to document clearing. Job ID: [id number]
--- NOTE | 2020-06-25 16:24 | PRG ---
DATE OF SERVICE: 06/25/2020 SUBJECTIVE: Feeling better actually. Still coughing somewhat, but not much sputum production anymore. No chest pain. No abdominal pain or diarrhea. OBJECTIVE: VITAL SIGNS: Temperature has been normal, but she is on steroids. Respiratory rate 18, saturating 96% on room air, pulse 82. Finally it came down. LUNGS: Quite clear to auscultation and percussion. CARDIAC: S1, S2. Regular rate. ABDOMEN: Soft, not distended. NEUROLOGIC: Nonfocal. EXTREMITIES: No edema. LABORATORY DATA: AST, ALT went up. They are still up at 181 and 297. Alkaline phosphatase went up to 331 and now is 302. Albumin is 3.0. Creatinine normal. The abdominal ultrasound showed cholelithiasis, but no cholecystitis. She has been started on steroids. I had stopped vancomycin. For some reason, it has been restarted. She does not require vancomycin any longer until the results of the carious test. ASSESSMENT AND DISCUSSION: Hang granulomatosis and necrotizing infection, right upper lobe; mycoplasma sequences identified in carious test, although below the threshold of statistical significance. Nonetheless, this was after quite a few days of antimicrobial therapy, so I think thus far the more tenable pathogen that is causing this in a somewhat atypical presentation due to her immunosuppression, probably mycoplasma can cause liver abnormalities or she is having a drug related reaction. We will go and stop vancomycin. Continue Merrem and levofloxacin and depending on progress, we may have to switch her to azithromycin and ertapenem for outpatient treatment. Discharge planning hopefully for tomorrow. Followup radiological studies at intervals and plan to treat her for two to three weeks approximately depending on clinical and laboratory progress. Job ID: [id number]
[2020-06-25] MEDS: Folic Acid 1 MG TAB PO SCH (20:02)
[2020-06-25] MEDS: Montelukast Sodium 10 mg Tablet PO SCH (20:02)
[2020-06-25] MEDS: Famotidine 20 MG TAB PO SCH (20:03)
[2020-06-26] MEDS: Meropenem 500 MG in Sodium Chloride 0.9% 100 ML IVPB SCH ×4 (00:01→17:26)
[2020-06-26 08:38] LABS: Mean Corpuscular HGB CONC 31.7 g/dL (32.0-36.0); Mean Corpuscular Hemoglobin 28.7 pg (27.0-31.0); Mean Corpuscular Volume 90.6 fL (78.0-98.0); Mean Platelet Volume 7.3 fL (7.4-10.4); Platelet Count 1169 thou/uL (130-400); RBC Distribution Width 13.2 % (11.5-14.5); Red Blood Cell (RBC) Count 3.82 mill/uL (4.20-5.40); White Blood Cell (WBC) Count 18.8 thou/uL (4.8-10.8)
[2020-06-26 08:49] LABS: Anion Gap 16 mmol/L (10-20); BUN (Urea Nitrogen) 16 mg/dL (7.0-18.7); Calc. Creatinine Clearance 153 mL/min (70-130); Calcium 8.6 mg/dL (7.8-10.44); Carbon Dioxide 23 mmol/L (22-29); Chloride 105 mmol/L (98-107); Glucose 89 mg/dL (70-105); Potassium 3.9 mmol/L (3.5-5.1); Sodium 140 mmol/L (136-145)
[2020-06-26 08:54] LABS: ALT (SGPT) 806 U/L (8-55); AST (SGOT) 453 U/L (5-34); Alkaline Phosphatase 296 U/L (40-110); Bilirubin, Direct 0.2 mg/dL (0.1-0.3); Bilirubin, Total 0.3 mg/dL (0.2-1.2); Protein, Total 5.7 g/dL (6.0-8.3)
[2020-06-26] MEDS: Saccharomyces boulardii 250 MG CAP PO SCH (09:03)
[2020-06-26] MEDS: Famotidine 20 MG TAB PO SCH ×2 (09:03→20:48)
[2020-06-26] MEDS: methylPREDNISolone Sod Succ 40 MG VIAL IVP SCH (09:03)
[2020-06-26] MEDS: Fluticasone Propionate Nasal Spray 16 gm Bottle NASAL SCH (09:04)
[2020-06-26 09:29] LABS: Band 10 % (5-11); Lymphocytes 20 % (21-51); MDiff Complete? YES; Monocytes 5 % (0-10); Neutrophil 64 % (42-75); Platelet Morphology Comment Appears Increased; Polychromasia SLIGHT = 2-3 cells (100X) (0-2/hpf); Reactive Lymphocytes 1 % (0-10)
--- NOTE | 2020-06-26 09:30 | PDOC.HOSPP ---
- Subjective Encounter Date: 06/26/20 Encounter Time: 09:27 - Objective Vital Signs & Weight: Vital Signs (12 hours) Temp Pulse Resp BP Pulse Ox 06/26/20 07:34 97 06/26/20 07:29 97.7 F 87 16 109/76 97 06/26/20 06:33 66 12 96 06/26/20 04:45 97.6 F 75 18 98/60 96 06/26/20 00:07 97.5 F L 83 16 94/55 L 97 Weight Admit Weight 165 lb Weight 165 lb I&O: 06/25/20 06/26/20 06/27/20 06:59 06:59 06:59 Intake Total 1330 1250 Balance 1330 1250 Result Diagrams: 06/26/20 07:51 06/26/20 07:51 Hospitalist ROS - Medication Medications: Active Medications Generic Name Dose Route Start Last Admin Trade Name Freq PRN Reason Stop Dose Admin Acetaminophen 650 mg 06/22/20 19:30 06/23/20 11:28 Acetaminophen 325 Mg Tab PO 650 mg Q4H PRN Administration Headache/Fever/Mild Pain (1-3) Albuterol/Ipratropium 3 ml 06/23/20 01:00 06/26/20 06:33 Ipratropium/Albuterol Sulfate 3 Ml Neb NEB 3 ml [id number] MORGAN Administration Famotidine 20 mg 06/25/20 21:00 06/26/20 09:03 Famotidine 20 Mg Tab PO 20 mg BID MORGAN Administration Fluticasone Propionate 0 gm 06/23/20 09:00 06/26/20 09:04 Fluticasone Propionate Nasal [place] 16 Gm Bottle NASAL 1 spr DAILY MORGAN Administration Folic Acid 1 mg 06/22/20 21:00 06/25/20 20:02 Folic Acid 1 Mg Tab PO 1 mg HS MORGAN Administration Meropenem 500 mg/ Sodium 100 mls @ 200 mls/hr 06/22/20 23:59 06/26/20 06:11 Chloride IVPB 100 mls Q6HR MORGAN Administration Levofloxacin 750 mg/ Device 150 mls @ 100 mls/hr 06/22/20 20:30 06/25/20 19:59 IVPB 150 mls Q24HR MORGAN Administration Methylprednisolone Sodium Succinate 40 mg 06/24/20 09:00 02/08/21 09:03 Methylprednisolone Sod Succ 40 Mg Vial IVP 40 mg DAILY MORGAN Administration Montelukast Sodium 10 mg 06/22/20 21:00 06/25/20 20:02 Montelukast Sodium 10 Mg Tablet PO 10 mg HS MORGAN Administration Saccharomyces Boulardii 250 mg 06/23/20 09:00 06/26/20 09:03 Saccharomyces Boulardii 250 Mg Cap PO 250 mg DAILY MORGAN Administration Sodium Chloride 10 ml 06/22/20 21:00 06/26/20 09:03 Flush - Normal Saline 10 Ml Syringe IVF 10 ml Q12HR MORGAN Administration Hospitalist Exam Vitals: Vital Signs (12 hours) Temp Pulse Resp BP Pulse Ox 06/26/20 07:34 97 06/26/20 07:29 97.7 F 87 16 109/76 97 06/26/20 06:33 66 12 96 06/26/20 04:45 97.6 F 75 18 98/60 96 06/26/20 00:07 97.5 F L 83 16 94/55 L 97 Weight Admit Weight 165 lb Weight 165 lb
--- NOTE | 2020-06-26 10:18 | SPC ---
Ultrasound and Fluoroscopic guided left upper extremity PICC placement HISTORY: Pneumonia. Patient needs long-term IV antibiotics. FINDINGS: Informed consent obtained prior to the procedure. An appropriate access site was determined with ultrasound guidance. The area was then meticulously pr epped and draped in usual sterile fashion. Skin overlying the left basilic vein anesthetized with 1% buffered lidocaine. Utilizing direct sonogr aphic guidance, vascular access is obtained via the left basilic vein, and an 0.018in guidewire was advanced to the cavoatrial junction. Intravascular length is calculated at 38.5 cm, and the PICC is c ut accordingly. Needle is removed and replaced with a peel-away sheath. The PICC was advanced over the wire. Wire and peel-away sheath were removed. The tip of the catheter overlies the cavoatrial junction. The catheter was accessed and aspirated/flushed easily. Exposure data: 0.7 minutes of fluoroscopic time 2522 mGy centimeter squared FINDINGS: Technically successful placement of a 38.5 centimeter single lumen 5 [place] left upper extremity PICC line. IMPRESSION: Successful ultrasound guided placement of a left upper extremity PICC.
--- NOTE | 2020-06-26 16:14 | PDOC.HOSPP ---
- Subjective Encounter Date: 06/26/20 Encounter Time: 16:11 Subjective: no fever, chills ,hemoptysis - Objective Vital Signs & Weight: Vital Signs (12 hours) Temp Pulse Resp BP Pulse Ox 06/26/20 11:35 98.0 F 80 20 103/66 98 06/26/20 07:34 97 06/26/20 07:29 97.7 F 87 16 109/76 97 06/26/20 06:33 66 12 96 06/26/20 04:45 97.6 F 75 18 98/60 96 Weight Admit Weight 165 lb Weight 165 lb I&O: 06/25/20 06/26/20 06/27/20 06:59 06:59 06:59 Intake Total 1330 1250 Balance 1330 1250 Result Diagrams: 06/26/20 07:51 06/26/20 07:51 Hospitalist ROS - Medication Medications: Active Medications Generic Name Dose Route Start Last Admin Trade Name Freq PRN Reason Stop Dose Admin Acetaminophen 650 mg 06/22/20 19:30 06/23/20 11:28 Acetaminophen 325 Mg Tab PO 650 mg Q4H PRN Administration Headache/Fever/Mild Pain (1-3) Albuterol/Ipratropium 3 ml 06/23/20 01:00 06/26/20 14:35 Ipratropium/Albuterol Sulfate 3 Ml Neb NEB Not Given [id number] MORGAN Famotidine 20 mg 06/25/20 21:00 06/26/20 09:03 Famotidine 20 Mg Tab PO 20 mg BID MORGAN Administration Fluticasone Propionate 0 gm 06/23/20 09:00 06/26/20 09:04 Fluticasone Propionate Nasal [place] 16 Gm Bottle NASAL 1 spr DAILY MORGAN Administration Folic Acid 1 mg 06/22/20 21:00 06/25/20 20:02 Folic Acid 1 Mg Tab PO 1 mg HS MORGAN Administration Meropenem 500 mg/ Sodium 100 mls @ 200 mls/hr 06/22/20 23:59 06/26/20 11:55 Chloride IVPB 100 mls Q6HR MORGAN Administration Levofloxacin 750 mg/ Device 150 mls @ 100 mls/hr 06/22/20 20:30 06/25/20 19:59 IVPB 150 mls Q24HR MORGAN Administration Methylprednisolone Sodium Succinate 40 mg 06/24/20 09:00 06/26/20 09:03 Methylprednisolone Sod Succ 40 Mg Vial IVP 40 mg DAILY MORGAN Administration Montelukast Sodium 10 mg 06/22/20 21:00 06/25/20 20:02 Montelukast Sodium 10 Mg Tablet PO 10 mg HS MORGAN Administration Saccharomyces Boulardii 250 mg 06/23/20 09:00 06/26/20 09:03 Saccharomyces Boulardii 250 Mg Cap PO 250 mg DAILY MORGAN Administration Sodium Chloride 10 ml 06/22/20 21:00 06/26/20 09:03 Flush - Normal Saline 10 Ml Syringe IVF 10 ml Q12HR MORGAN Administration Hospitalist Exam Vitals: Vital Signs (12 hours) Temp Pulse Resp BP Pulse Ox 06/26/20 11:35 98.0 F 80 20 103/66 98 06/26/20 07:34 97 06/26/20 07:29 97.7 F 87 16 109/76 97 06/26/20 06:33 66 12 96 06/26/20 04:45 97.6 F 75 18 98/60 96 Weight Admit Weight 165 lb Weight 165 lb General Appearance: awake alert Neck: no JVD Heart: RRR, no murmur Respiratory: CTAB Gastrointestinal: soft, normal bowel sounds Extremities: no edema Hosp A/P (1) Diarrhea Code(s): R19.7 - DIARRHEA, UNSPECIFIED Status: Acute (2) Elevated liver function tests Code(s): R79.89 - OTHER SPECIFIED ABNORMAL FINDINGS OF BLOOD CHEMISTRY Status: Acute (3) Necrotizing pneumonia Code(s): J85.0 - GANGRENE AND NECROSIS OF LUNG Status: Acute (4) Hang's disease, 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
[2020-06-26] MEDS: Folic Acid 1 MG TAB PO SCH (20:47)
[2020-06-26] MEDS: Montelukast Sodium 10 mg Tablet PO SCH (20:47)
[2020-06-27] MEDS: Meropenem 500 MG in Sodium Chloride 0.9% 100 ML IVPB SCH ×3 (00:03→11:29)
[2020-06-27 07:33] VITALS: BP 126/86; TEMP 97.9
[2020-06-27] MEDS: Famotidine 20 MG TAB PO SCH (08:39)
[2020-06-27] MEDS: Saccharomyces boulardii 250 MG CAP PO SCH (08:39)
[2020-06-27] MEDS: methylPREDNISolone Sod Succ 40 MG VIAL IVP SCH (08:39)
[2020-06-27] MEDS: Fluticasone Propionate Nasal Spray 16 gm Bottle NASAL SCH (08:48)
--- NOTE | 2020-06-27 15:02 | PDOC.HOSPP ---
- Subjective Encounter Date: 06/27/20 Encounter Time: 14:59 Subjective: ready to go - Objective Vital Signs & Weight: Vital Signs (12 hours) Temp Pulse Resp BP Pulse Ox 06/27/20 14:04 85 20 99 06/27/20 09:06 86 18 98 06/27/20 07:31 97.9 F 65 16 126/86 97 06/27/20 06:00 98.5 F 80 16 101/69 96 Weight Admit Weight 165 lb Weight 165 lb I&O: 06/26/20 06/27/20 06/28/20 06:59 06:59 06:59 Intake Total 1250 Balance 1250 Result Diagrams: 06/26/20 07:51 06/26/20 07:51 Hospitalist ROS - Medication Medications: Active Medications Generic Name Dose Route Start Last Admin Trade Name Freq PRN Reason Stop Dose Admin Acetaminophen 650 mg 06/22/20 19:30 06/23/20 11:28 Acetaminophen 325 Mg Tab PO 650 mg Q4H PRN Administration Headache/Fever/Mild Pain (1-3) Albuterol/Ipratropium 3 ml 06/23/20 01:00 06/27/20 14:04 Ipratropium/Albuterol Sulfate 3 Ml Neb NEB 3 ml [id number] MORGAN Administration Famotidine 20 mg 06/25/20 21:00 06/27/20 08:39 Famotidine 20 Mg Tab PO 20 mg BID MORGAN Administration Fluticasone Propionate 0 gm 06/23/20 09:00 06/27/20 08:48 Fluticasone Propionate Nasal [place] 16 Gm Bottle NASAL 1 spr DAILY MORGAN Administration Folic Acid 1 mg 06/22/20 21:00 06/26/20 20:47 Folic Acid 1 Mg Tab PO 1 mg HS MORGAN Administration Meropenem 500 mg/ Sodium 100 mls @ 200 mls/hr 06/22/20 23:59 06/27/20 11:29 Chloride IVPB 100 mls Q6HR MORGAN Administration Levofloxacin 750 mg/ Device 150 mls @ 100 mls/hr 06/22/20 20:30 06/26/20 20:43 IVPB 150 mls Q24HR MORGAN Administration Methylprednisolone Sodium Succinate 40 mg 06/24/20 09:00 06/27/20 08:39 Methylprednisolone Sod Succ 40 Mg Vial IVP 40 mg DAILY MORGAN Administration Montelukast Sodium 10 mg 06/22/20 21:00 06/26/20 20:47 Montelukast Sodium 10 Mg Tablet PO 10 mg HS MORGAN Administration Saccharomyces Boulardii 250 mg 06/23/20 09:00 06/27/20 08:39 Saccharomyces Boulardii 250 Mg Cap PO 250 mg DAILY MORGAN Administration Sodium Chloride 10 ml 06/22/20 21:00 06/27/20 07:30 Flush - Normal Saline 10 Ml Syringe IVF 10 ml Q12HR MORGAN Administration Hospitalist Exam Vitals: Vital Signs (12 hours) Temp Pulse Resp BP Pulse Ox 06/27/20 14:04 85 20 99 06/27/20 09:06 86 18 98 06/27/20 07:31 97.9 F 65 16 126/86 97 06/27/20 06:00 98.5 F 80 16 101/69 96 Weight Admit Weight 165 lb Weight 165 lb General Appearance: awake alert Neck: no JVD Heart: RRR, no murmur Respiratory: CTAB Respiratory - other findings: scattered rhonchi Gastrointestinal: soft, non-distended, normal bowel sounds Extremities: no edema Hosp A/P (1) Diarrhea Code(s): R19.7 - DIARRHEA, UNSPECIFIED Status: Acute (2) Elevated liver function tests Code(s): R79.89 - OTHER SPECIFIED ABNORMAL FINDINGS OF BLOOD CHEMISTRY Status: Acute (3) Necrotizing pneumonia Code(s): J85.0 - GANGRENE AND NECROSIS OF LUNG Status: Acute (4) Hang's disease, 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
--- NOTE | 2020-06-27 16:10 | DIS ---
DATE OF ADMISSION: 06/22/2020 DATE OF DISCHARGE: 06/27/2020 PRIMARY CARE PROVIDER: Out of town physician. DISCHARGE DIAGNOSES: Necrotizing pneumonia of right lung, Hang granulomatosis, elevated transaminases, sepsis syndrome related to pneumonia, diarrhea. DISCHARGE MEDICATIONS: 1. Daptomycin 500 mg IV daily starting 06/28/2020. 2. Invanz 1 g IV daily starting 07/15. 3. Levaquin 500 mg p.o. daily starting 06/27. 4. Florastor 250 mg a day. 5. Methotrexate 50 mg q.7 days. 6. Singulair 10 mg at bedtime. 7. Folic acid 1 mg at bedtime. 8. Rituxan 1000 mg IV piggyback q.168 days. ALLERGIES: HYDROCODONE, NSAIDS. DIET: As tolerated. PENDING AT TIME OF DISCHARGE: Nothing. CODE STATUS: Full. HOSPITAL COURSE: The patient was admitted to the hospital to the emergency room with fever productive of cough, history of Hnag disease, abscess of lung on chest x-ray. She also had some diarrhea, hypokalemia. CONSULTATIONS: Dr. Lamont Trejo, Pulmonology; Dr. Cory Gale, Infectious Disease. PROCEDURES: PICC line on 06/26/2020. INITIAL STUDIES: On 06/22/2020; white count 23,000, hemoglobin 10.5, platelet count 799,000. Chemistries; initial 135 sodium, 3.5 potassium, CO2 of 20, BUN 8, creatinine 0.70. Bilirubin normal, AST 152 on admission, ALT 294. COVID was negative. The patient was started on IV antibiotics. She had previously been in the [facility]. Previously, it is pertinent she has been on Rituxan and methotrexate. On admission, she was put on cefepime, Levaquin, meropenem. She was given vancomycin. She was also started on methylprednisolone. Dr. Gale recommended discontinuing vancomycin, subsequently was done. During her hospital stay, she has been afebrile. She was initially tachycardic. Her initial temperature was 100.2, has been no fever since. She has not required oxygen during her hospital stay. Her tachycardia resolved. Her lungs became clear too. Her white counts initial 23.2; on 06/23, 25.3; on 06/24, 25.2; on 06/25, 23,000; on 06/26, 18.8. She has an absolute thrombocytosis at the present time considered to be reactive. Hemoglobin is maintained at 10.0 +/-1. She initially had 29 bands. This has dropped down to normal. Her renal function has remained stable. Transaminases have not changed much. Her COVID test was negative. Blood cultures were negative. Because her clinical situation is improved so well, she is being discharged for prolonged IV antibiotics with Levaquin 500 mg p.o. daily, daptomycin 500 mg IV daily, Invanz 1 g IV daily. She will follow up with Dr. Gale for the IV medication. She will follow up with Dr. Trejo in 6 weeks with a chest x-ray. Job ID: [id number]
[2020-06-27 23:36] LABS: Mycoplasma pneumoniae IgG AB Less than 100 U/mL (0-99); Mycoplasma pneumoniae IgM AB Less than 770 U/mL (0-769)
== END 2020-06-27 15:52 | disposition home or self-care (01) | DRG 871 ==
LOC: T4-A 16:29
PROVIDERS: ADMIT Internal Medicine; ATTEND Internal Medicine
DX: A41.9 Sepsis, unspecified organism (principal); J85.1 Abscess of lung with pneumonia; J85.0 Gangrene and necrosis of lung; M31.30 Wegener's granulomatosis without renal involvement; R19.7 Diarrhea, unspecified; E87.6 Hypokalemia; J45.909 Unspecified asthma, uncomplicated; Z88.8 Allergy status to other drugs, medicaments and biological substances; Z88.6 Allergy status to analgesic agent; Z79.51 Long term (current) use of inhaled steroids; Z79.899 Other long term (current) drug therapy; R79.89 Other specified abnormal findings of blood chemistry; D47.3 Essential (hemorrhagic) thrombocythemia; Z20.822 Contact with and (suspected) exposure to COVID-19
CPT/HCPCS: 36415; 36569; 76705; 80048; 80053; 80076; 80202; 83605; 83735; 85025; 87040; 87635; 94640; C1751; J1644; J1956; J2185; J2920; J3370; J3490; J7620; S0028; U0003; U0005

== ENCOUNTER 2020-07-11 12:37 | Outpatient (CLI) | payer OTHER ==
--- NOTE | 2020-07-11 13:40 | RAD ---
PA AND LATERAL CHEST: 07/11/20 HISTORY: Lung abscess. COMPARISON: 06/22/20 exam. Heart size is within normal limits. The left sided PICC line is in place. Some pleural and parenchyma l changes in the left base. An area of consolidation in the right upper lobe. These findings appear s table. IMPRESSION: Stable exam. POS: OFF
== END 2020-07-11 12:38 | disposition home or self-care (01) ==
LOC: BICRAD 12:37
PROVIDERS: ATTEND Internal Medicine Infectious Disease
DX: J85.2 Abscess of lung without pneumonia (principal)
CPT/HCPCS: 71046

== ENCOUNTER 2020-07-26 09:27 | Outpatient (CLI) | payer OTHER | END 2020-07-26 09:28 | disposition home or self-care (01) | LOC: BICRAD 09:27 | PROVIDERS: ATTEND Internal Medicine Critical Care Medicine | DX: R06.00 Dyspnea, unspecified (principal); A15.0 Tuberculosis of lung | CPT/HCPCS: 71046 ==

== ENCOUNTER 2020-08-16 13:16 | Inpatient (IN) | payer OTHER ==
[2020-08-16] MEDS ORDERED: Enoxaparin Sodium 40 MG/0.4 ML SYRINGE SC SCH (14:30)
[2020-08-16 15:06] VITALS: BMI 22.6
[2020-08-16] MEDS ORDERED: Clindamycin/D5W 600 MG in Premix Bag 1 BAG IVPB SCH (15:15)
[2020-08-16] MEDS: Piperacillin/Tazobactam 3.375 GM in Sodium Chloride 0.9% 100 ML IVPB SCH ×2 (15:28→20:43)
[2020-08-16] MEDS ORDERED: Heparin 1,000 UNITS/ML VIAL ONE (15:36)
[2020-08-16] MEDS ORDERED: Acetaminophen 500 MG TAB PO PRN (16:37)
[2020-08-16] MEDS: Acetaminophen 325 MG TAB PO PRN (16:56)
[2020-08-16] MEDS: VANCOMYCIN 1.25 GM/250 ML BAG 1.25 GM in Premix Bag 1 BAG IVPB SCH (17:42)
[2020-08-16] MEDS: Famotidine 20 MG TAB PO SCH (20:43)
[2020-08-16] MEDS ORDERED: diphenhydrAMINE 25 MG CAP PO SCH (21:15)
[2020-08-16] MEDS: Clindamycin/D5W 600 MG in Premix Bag 1 BAG IVPB SCH (21:44)
[2020-08-17] MEDS: Acetaminophen 325 MG TAB PO PRN (00:04)
[2020-08-17] MEDS: Piperacillin/Tazobactam 3.375 GM in Sodium Chloride 0.9% 100 ML IVPB SCH ×2 (02:29→11:44)
[2020-08-17] MEDS: VANCOMYCIN 1.25 GM/250 ML BAG 1.25 GM in Premix Bag 1 BAG IVPB SCH (04:25)
[2020-08-17 05:15] LABS: #Basophils 0.1 thou/uL (0.0-0.2); #Eosinphils 0.4 thou/uL (0.0-0.7); #Lymphocytes 2.1 thou/uL (1.20-3.40); #Monocytes 1.1 thou/uL (0.11-0.59); #Neutrophils 16.3 thou/uL (1.40-6.50); %Basophils 0.3 % (0.0-1.0); %Eosinophils 1.9 % (0.0-10.0); %Lymphocytes 10.6 % (21.0-51.0); %Monocytes 5.7 % (0.0-10.0); %Neutrophils 81.5 % (42.0-75.0); Hemoglobin 8.8 g/dL (12.0-16.0); Mean Corpuscular Hemoglobin 26.6 pg (27.0-31.0); Mean Corpuscular Volume 83.2 fL (78.0-98.0); Mean Platelet Volume 6.9 fL (7.4-10.4); Platelet Count 633 thou/uL (130-400); RBC Distribution Width 15.6 % (11.5-14.5); Red Blood Cell (RBC) Count 3.32 mill/uL (4.20-5.40); White Blood Cell (WBC) Count 19.9 thou/uL (4.8-10.8)
[2020-08-17 05:36] LABS: Anion Gap 9 mmol/L (10-20); BUN (Urea Nitrogen) 5 mg/dL (7.0-18.7); Calc. Creatinine Clearance 110 mL/min (70-130); Calcium 8.2 mg/dL (7.8-10.44); Carbon Dioxide 28 mmol/L (22-29); Chloride 103 mmol/L (98-107); Glucose 105 mg/dL (70-105); Potassium 3.4 mmol/L (3.5-5.1); Sodium 137 mmol/L (136-145)
[2020-08-17] MEDS: Clindamycin/D5W 600 MG in Premix Bag 1 BAG IVPB SCH ×2 (05:44→13:04)
[2020-08-17 09:44] LABS: SARS-CoV-2 NAA Rapid Test Not Detected (NotDetected)
[2020-08-17] MEDS ORDERED: Famotidine/PF 20 mg/2ml Vial ONE (10:04)
[2020-08-17] MEDS ORDERED: Midazolam HCl 2 mg/2 ml Vial ONE (10:04)
[2020-08-17] MEDS ORDERED: SUGAMMADEX SODIUM 200 MG/2 ML VIAL ONE (10:11)
[2020-08-17] MEDS ORDERED: Fentanyl 100 MCG/2 ML VIAL ONE (10:11)
[2020-08-17] MEDS ORDERED: Rocuronium Bromide 10 MG/ML (10ML VIAL) ONE (10:46)
[2020-08-17] MEDS ORDERED: Dexamethasone 20 MG/5 ML VIAL ONE (10:46)
[2020-08-17] MEDS ORDERED: Lidocaine 1% PF 5 ML VIAL ONE (10:46)
[2020-08-17] MEDS ORDERED: PHENYLEPHRINE-NS 100 MCG/ML 10 ML SYRINGE ONE (10:46)
[2020-08-17] MEDS ORDERED: PROPOFOL 200 MG/20 ML VIAL ONE (10:46)
[2020-08-17] MEDS ORDERED: diphenhydrAMINE 50 MG/ML VIAL ONE (10:46)
[2020-08-17] MEDS ORDERED: Ondansetron PF 4 MG/2 ML Vial ONE (10:46)
[2020-08-17] MEDS ORDERED: HYDROmorphone 2 MG/ML VIAL SLOW IVP PRN (11:30)
[2020-08-17] MEDS ORDERED: Promethazine HCl 25 MG/ML VIAL IM PRN (11:30)
[2020-08-17] MEDS ORDERED: Promethazine HCl 25 MG/ML VIAL SLOW IVP PRN (11:30)
[2020-08-17] MEDS ORDERED: Meperidine HCl/PF 25 MG/ML VIAL SLOW IVP PRN (11:30)
[2020-08-17] MEDS: Famotidine 20 MG TAB PO SCH ×2 (11:44→20:04)
[2020-08-17] MEDS: Enoxaparin Sodium 40 MG/0.4 ML SYRINGE SC SCH (13:03)
[2020-08-17] MEDS ORDERED: Meropenem 2 GM in Admixture Fee 1 EACH IVPB SCH (14:00)
[2020-08-17] MEDS: Meropenem 2 GM in Sodium Chloride 0.9% 100 ML IVPB SCH ×2 (14:16→23:00)
[2020-08-17] MEDS ORDERED: Potassium Chloride 20 MEQ TAB PO SCH (15:45)
[2020-08-17] MEDS: Fluconazole In NaCl,Iso-Osm 200 MG in Premix Bag 1 BAG IVPB SCH (15:51)
[2020-08-17] MEDS ORDERED: methylPREDNISolone Sod Succ 40 MG VIAL IVP SCH (18:30)
[2020-08-17] MEDS: Montelukast Sodium 10 mg Tablet PO SCH (20:04)
[2020-08-17] MEDS: cycloSPORINE 0.05% Ophthalmic Droperette EA EYE SCH (22:41)
[2020-08-17] MEDS: methylPREDNISolone Sod Succ 40 MG VIAL IVP SCH (23:01)
[2020-08-18 05:36] LABS: Hemoglobin 8.8 g/dL (12.0-16.0); Mean Corpuscular HGB CONC 31.4 g/dL (32.0-36.0); Mean Corpuscular Hemoglobin 26.1 pg (27.0-31.0); Mean Corpuscular Volume 83.2 fL (78.0-98.0); Mean Platelet Volume 7.2 fL (7.4-10.4); Platelet Count 712 thou/uL (130-400); RBC Distribution Width 15.6 % (11.5-14.5); Red Blood Cell (RBC) Count 3.35 mill/uL (4.20-5.40); White Blood Cell (WBC) Count 24.2 thou/uL (4.8-10.8)
[2020-08-18 05:37] LABS: Lymphocytes 3 % (21-51); MDiff Complete? YES; Metamyelocyte 1 % (0-0); Monocytes 3 % (0-10); Neutrophil 93 % (42-75); Platelet Morphology Comment Appears Increased
[2020-08-18 05:38] LABS: Iron 17 ug/dL (50-170); Iron Binding Capacity, Total 155 mcg/dL (265-497)
[2020-08-18 05:39] LABS: Anion Gap 17 mmol/L (10-20); BUN (Urea Nitrogen) 11 mg/dL (7.0-18.7); Calc. Creatinine Clearance 120 mL/min (70-130); Calcium 8.9 mg/dL (7.8-10.44); Carbon Dioxide 21 mmol/L (22-29); Chloride 104 mmol/L (98-107); Glucose 138 mg/dL (70-105); Iron 19 ug/dL (50-170); Iron Binding Capacity, Total 154 mcg/dL (265-497); Magnesium 2.1 mg/dL (1.6-2.6); Potassium 3.8 mmol/L (3.5-5.1); Sodium 138 mmol/L (136-145)
[2020-08-18] MEDS: methylPREDNISolone Sod Succ 40 MG VIAL IVP SCH ×4 (05:40→23:18)
[2020-08-18] MEDS: Meropenem 2 GM in Sodium Chloride 0.9% 100 ML IVPB SCH ×3 (05:40→21:48)
[2020-08-18] MEDS: Enoxaparin Sodium 40 MG/0.4 ML SYRINGE SC SCH (09:34)
[2020-08-18] MEDS: cycloSPORINE 0.05% Ophthalmic Droperette EA EYE SCH ×2 (09:35→20:17)
[2020-08-18] MEDS: Famotidine 20 MG TAB PO SCH ×2 (09:35→20:16)
[2020-08-18 15:51] LABS: ANA Symphony (Qualitative) Negative (Negative); ANA Symphony (Quantitative) 0.1 Ratio (< 0.7 Negative); EliA Thy New Method **** NEW METHOD ****; EliA Vaculitis New Method **** NEW METHOD ****; Mitochondrial Ab 0.7 U/mL (<4 Negative); Thyroid Peroxidase IgG Ab Less than 4.0 IU/mL (<25 Normal); dsDNA IgG Antibody Less than 0.5 IU/mL (<10 Negative)
[2020-08-18] MEDS: Fluconazole In NaCl,Iso-Osm 200 MG in Premix Bag 1 BAG IVPB SCH (17:07)
[2020-08-18] MEDS: Ferrous Gluconate 324 MG TAB PO SCH (17:07)
[2020-08-18] MEDS: Montelukast Sodium 10 mg Tablet PO SCH (20:16)
[2020-08-18] MEDS: guaiFENesin/Codeine 200 mg/20 mg 10 ml Cup PO PRN (21:48)
[2020-08-19] MEDS: Meropenem 2 GM in Sodium Chloride 0.9% 100 ML IVPB SCH ×3 (05:14→22:54)
[2020-08-19] MEDS: methylPREDNISolone Sod Succ 40 MG VIAL IVP SCH ×4 (05:14→22:54)
[2020-08-19 05:55] LABS: Band 39 % (5-11); Hemoglobin 9.4 g/dL (12.0-16.0); Lymphocytes 6 % (21-51); MDiff Complete? YES; Mean Corpuscular HGB CONC 32.5 g/dL (32.0-36.0); Mean Corpuscular Hemoglobin 27.3 pg (27.0-31.0); Mean Corpuscular Volume 84.1 fL (78.0-98.0); Mean Platelet Volume 7.5 fL (7.4-10.4); Monocytes 1 % (0-10); Neutrophil 54 % (42-75); Platelet Count 832 thou/uL (130-400); Platelet Morphology Comment Appears Increased; RBC Distribution Width 15.9 % (11.5-14.5); Red Blood Cell (RBC) Count 3.43 mill/uL (4.20-5.40); White Blood Cell (WBC) Count 27.9 thou/uL (4.8-10.8)
[2020-08-19 06:02] LABS: Anion Gap 18 mmol/L (10-20); BUN (Urea Nitrogen) 15 mg/dL (7.0-18.7); Calc. Creatinine Clearance 142 mL/min (70-130); Calcium 8.9 mg/dL (7.8-10.44); Carbon Dioxide 20 mmol/L (22-29); Chloride 106 mmol/L (98-107); Glucose 129 mg/dL (70-105); Potassium 4.2 mmol/L (3.5-5.1); Sodium 140 mmol/L (136-145)
[2020-08-19] MEDS: Acetaminophen 325 MG TAB PO PRN (07:56)
[2020-08-19] MEDS: Famotidine 20 MG TAB PO SCH ×2 (07:56→19:49)
[2020-08-19] MEDS: Ferrous Gluconate 324 MG TAB PO SCH ×2 (07:56→17:38)
[2020-08-19] MEDS: Enoxaparin Sodium 40 MG/0.4 ML SYRINGE SC SCH (07:57)
[2020-08-19] MEDS: cycloSPORINE 0.05% Ophthalmic Droperette EA EYE SCH ×2 (07:57→21:59)
[2020-08-19] MEDS: Fluconazole In NaCl,Iso-Osm 200 MG in Premix Bag 1 BAG IVPB SCH (15:21)
[2020-08-19] MEDS: Saccharomyces boulardii 250 MG CAP PO SCH (19:49)
[2020-08-19] MEDS: Montelukast Sodium 10 mg Tablet PO SCH (19:49)
[2020-08-19] MEDS: Folic Acid 1 MG TAB PO SCH (19:49)
[2020-08-19] MEDS: guaiFENesin/Codeine 200 mg/20 mg 10 ml Cup PO PRN (22:54)
[2020-08-20 05:07] LABS: Hemoglobin 9.6 g/dL (12.0-16.0); Mean Corpuscular HGB CONC 31.6 g/dL (32.0-36.0); Mean Corpuscular Hemoglobin 26.7 pg (27.0-31.0); Mean Corpuscular Volume 84.5 fL (78.0-98.0); Mean Platelet Volume 7.4 fL (7.4-10.4); Platelet Count 871 thou/uL (130-400); Red Blood Cell (RBC) Count 3.59 mill/uL (4.20-5.40); White Blood Cell (WBC) Count 24.2 thou/uL (4.8-10.8)
[2020-08-20 05:25] LABS: Band 22 % (5-11); Lymphocytes 8 % (21-51); MDiff Complete? YES; Monocytes 1 % (0-10); Neutrophil 69 % (42-75); Platelet Morphology Comment Appears Increased
[2020-08-20 05:26] LABS: Anion Gap 15 mmol/L (10-20); BUN (Urea Nitrogen) 18 mg/dL (7.0-18.7); Calc. Creatinine Clearance 115 mL/min (70-130); Calcium 8.8 mg/dL (7.8-10.44); Carbon Dioxide 22 mmol/L (22-29); Chloride 106 mmol/L (98-107); Glucose 115 mg/dL (70-105); Potassium 4.3 mmol/L (3.5-5.1); Sodium 139 mmol/L (136-145)
[2020-08-20] MEDS: methylPREDNISolone Sod Succ 40 MG VIAL IVP SCH ×4 (06:02→22:50)
[2020-08-20] MEDS: Meropenem 2 GM in Sodium Chloride 0.9% 100 ML IVPB SCH ×3 (06:02→22:49)
[2020-08-20] MEDS: Famotidine 20 MG TAB PO SCH ×2 (08:21→19:46)
[2020-08-20] MEDS: Ferrous Gluconate 324 MG TAB PO SCH ×2 (08:22→17:17)
[2020-08-20] MEDS: Saccharomyces boulardii 250 MG CAP PO SCH ×2 (08:22→19:46)
[2020-08-20] MEDS: cycloSPORINE 0.05% Ophthalmic Droperette EA EYE SCH ×2 (15:19→19:47)
[2020-08-20] MEDS: Fluconazole In NaCl,Iso-Osm 200 MG in Premix Bag 1 BAG IVPB SCH (15:20)
[2020-08-20] MEDS: Montelukast Sodium 10 mg Tablet PO SCH (19:46)
[2020-08-20] MEDS: Folic Acid 1 MG TAB PO SCH (19:46)
[2020-08-20] MEDS: guaiFENesin/Codeine 200 mg/20 mg 10 ml Cup PO PRN (22:49)
[2020-08-21 05:09] LABS: Hemoglobin 10.2 g/dL (12.0-16.0); Mean Corpuscular HGB CONC 31.5 g/dL (32.0-36.0); Mean Corpuscular Hemoglobin 26.6 pg (27.0-31.0); Mean Corpuscular Volume 84.5 fL (78.0-98.0); Mean Platelet Volume 7.2 fL (7.4-10.4); Platelet Count 978 thou/uL (130-400); RBC Distribution Width 16.3 % (11.5-14.5); Red Blood Cell (RBC) Count 3.82 mill/uL (4.20-5.40); White Blood Cell (WBC) Count 24.2 thou/uL (4.8-10.8)
[2020-08-21 05:24] LABS: Band 5 % (5-11); Hypochromia SLIGHT = 6-15 cells (100X) (0-5/hpf); Lymphocytes 17 % (21-51); MDiff Complete? YES; Monocytes 1 % (0-10); Neutrophil 77 % (42-75); Platelet Morphology Comment Appears Increased
[2020-08-21] MEDS: methylPREDNISolone Sod Succ 40 MG VIAL IVP SCH ×2 (06:01→12:05)
[2020-08-21] MEDS: Meropenem 2 GM in Sodium Chloride 0.9% 100 ML IVPB SCH ×3 (06:01→21:59)
[2020-08-21] MEDS: Famotidine 20 MG TAB PO SCH ×2 (08:55→20:36)
[2020-08-21] MEDS: Saccharomyces boulardii 250 MG CAP PO SCH ×2 (08:56→20:36)
[2020-08-21] MEDS: Ferrous Gluconate 324 MG TAB PO SCH ×2 (08:56→17:04)
[2020-08-21] MEDS: cycloSPORINE 0.05% Ophthalmic Droperette EA EYE SCH ×2 (08:57→20:37)
[2020-08-21 11:13] LABS: Fungus Stain Final report (.)
[2020-08-21] MEDS ORDERED: predniSONE 20 MG TAB PO SCH (14:00)
[2020-08-21 15:13] LABS: Cytoplasmic (C-ANCA) <1:20 titer (Neg:<1:20); Myeloperoxidase AutoAbs <9.0 U/mL (0.0-9.0); Perinuclear (P-ANCA) <1:20 titer (Neg:<1:20); Proteinase-3 AutoAbs Less than 3.5 U/mL (0.0-3.5)
[2020-08-21] MEDS: Fluconazole In NaCl,Iso-Osm 200 MG in Premix Bag 1 BAG IVPB SCH (17:04)
[2020-08-21] MEDS: Montelukast Sodium 10 mg Tablet PO SCH (20:36)
[2020-08-21] MEDS: Folic Acid 1 MG TAB PO SCH (20:36)
[2020-08-22] MEDS: Meropenem 2 GM in Sodium Chloride 0.9% 100 ML IVPB SCH ×3 (05:01→21:16)
[2020-08-22] MEDS: Famotidine 20 MG TAB PO SCH ×2 (10:20→21:12)
[2020-08-22] MEDS: Saccharomyces boulardii 250 MG CAP PO SCH ×2 (10:20→21:12)
[2020-08-22] MEDS: predniSONE 20 MG TAB PO SCH (10:21)
[2020-08-22] MEDS: Ferrous Gluconate 324 MG TAB PO SCH ×2 (10:21→18:17)
[2020-08-22] MEDS: cycloSPORINE 0.05% Ophthalmic Droperette EA EYE SCH ×2 (10:24→21:10)
[2020-08-22] MEDS: Folic Acid 1 MG TAB PO SCH (21:12)
[2020-08-22] MEDS: Montelukast Sodium 10 mg Tablet PO SCH (21:12)
[2020-08-23 06:12] VITALS: TEMP 97.8
[2020-08-23 06:22] LABS: Hemoglobin 10.7 g/dL (12.0-16.0); Mean Corpuscular HGB CONC 32.5 g/dL (32.0-36.0); Mean Corpuscular Hemoglobin 27.6 pg (27.0-31.0); Mean Corpuscular Volume 84.7 fL (78.0-98.0); Mean Platelet Volume 6.7 fL (7.4-10.4); Platelet Count 927 thou/uL (130-400); RBC Distribution Width 17.9 % (11.5-14.5); Red Blood Cell (RBC) Count 3.86 mill/uL (4.20-5.40); White Blood Cell (WBC) Count 22.5 thou/uL (4.8-10.8)
[2020-08-23 06:43] LABS: Hypochromia SLIGHT = 6-15 cells (100X) (0-5/hpf); Lymphocytes 24 % (21-51); MDiff Complete? YES; Monocytes 6 % (0-10); Neutrophil 70 % (42-75); Platelet Morphology Comment Appears Increased
[2020-08-23] MEDS: Meropenem 2 GM in Sodium Chloride 0.9% 100 ML IVPB SCH ×2 (07:16→14:47)
[2020-08-23 08:23] VITALS: BP 100/68
[2020-08-23] MEDS: Saccharomyces boulardii 250 MG CAP PO SCH (08:41)
[2020-08-23] MEDS: Famotidine 20 MG TAB PO SCH (08:41)
[2020-08-23] MEDS: predniSONE 20 MG TAB PO SCH (08:41)
[2020-08-23] MEDS: Ferrous Gluconate 324 MG TAB PO SCH (08:41)
[2020-08-23] MEDS: cycloSPORINE 0.05% Ophthalmic Droperette EA EYE SCH (08:41)
[2020-08-24 11:53] LABS: Reference Lab Name KARIUS
[2020-09-15 13:37] LABS: Fungus Culture Final report (.)
== END 2020-08-23 15:59 | disposition home or self-care (01) | DRG 871 ==
LOC: SURG A 13:21
PROVIDERS: ADMIT Internal Medicine; ATTEND Family Medicine
PROC: 0B9C8ZZ Drainage of Right Upper Lung Lobe, Via Natural or Artificial Opening Endoscopic (ICD-10-PCS; 2020-08-17)
PROC: 0BDC8ZX Extraction of Right Upper Lung Lobe, Via Natural or Artificial Opening Endoscopic, Diagnostic (ICD-10-PCS; 2020-08-17)
PROC: 02HV33Z Insertion of Infusion Device into Superior Vena Cava, Percutaneous Approach (ICD-10-PCS; principal; 2020-08-22)
PROC: B548ZZA Ultrasonography of Superior Vena Cava, Guidance (ICD-10-PCS; 2020-08-22)
DX: A41.9 Sepsis, unspecified organism (principal); J85.1 Abscess of lung with pneumonia; J85.0 Gangrene and necrosis of lung; Z20.822 Contact with and (suspected) exposure to COVID-19; M31.30 Wegener's granulomatosis without renal involvement; K52.1 Toxic gastroenteritis and colitis; E87.6 Hypokalemia; T36.95XA Adverse effect of unspecified systemic antibiotic, initial encounter; Z88.5 Allergy status to narcotic agent; Z79.899 Other long term (current) drug therapy
CPT/HCPCS: 36415; 36569; 80048; 83516; 83520; 83540; 83550; 83735; 85025; 85652; 86038; 86160; 86225; 86256; 86376; 87070; 87102; 87116; 87205; 87206; 87899; 88112; 88305; 94640; 94668; C1751; J1100; J1200; J1450; J1644; J2185; J2250; J2405; J2543; J2704; J2920; J3010; J3370; J3490; J7512; J7620; Q0163; S0028; U0002

== ENCOUNTER 2020-09-07 08:22 | Outpatient (CLI) | payer OTHER | END 2020-09-07 08:23 | disposition home or self-care (01) | LOC: BICRAD 08:22 | PROVIDERS: ATTEND Internal Medicine Critical Care Medicine | DX: R06.00 Dyspnea, unspecified (principal); R91.8 Other nonspecific abnormal finding of lung field; J92.9 Pleural plaque without asbestos | CPT/HCPCS: 71046 ==

== ENCOUNTER 2020-09-28 08:59 | Outpatient (CLI) | payer OTHER | END 2020-09-28 09:00 | disposition home or self-care (01) | LOC: BICRAD 08:59 | PROVIDERS: ATTEND Internal Medicine Critical Care Medicine | DX: R06.00 Dyspnea, unspecified (principal) | CPT/HCPCS: 71046 ==

== ENCOUNTER 2020-12-26 07:35 | Outpatient (CLI) | payer OTHER | END 2020-12-26 07:36 | disposition home or self-care (01) | LOC: BICRAD 07:35 | PROVIDERS: ATTEND Internal Medicine Critical Care Medicine | DX: R06.00 Dyspnea, unspecified (principal); J98.4 Other disorders of lung; R91.8 Other nonspecific abnormal finding of lung field | CPT/HCPCS: 71046 ==

== ENCOUNTER 2022-09-05 07:59 | Outpatient (CLI) | payer BC | END 2022-09-05 08:00 | disposition home or self-care (01) | LOC: BICRAD 07:59 | PROVIDERS: ATTEND Internal Medicine Critical Care Medicine | DX: R06.00 Dyspnea, unspecified (principal); R91.8 Other nonspecific abnormal finding of lung field | CPT/HCPCS: 71046 ==